=== PATIENT | male | born 1955 | race Caucasian/White ===

== ENCOUNTER 2016-09-01 01:42 | Inpatient (IN) | payer MEDICARE ==
--- NOTE | 2016-09-01 02:39 | EDPRACDOC ---
- History of Present Illness HPI: NOTE SEEN AND EXAMINED; I ASKED FOR PT TO BE UNDRESSED TO PROPERLY EVALUATE. SIG SWELLING AND DRAINING FROM BL LOWER EXTREMITIES; ALSO SIG REDNESS AND ERYTHEMA TO PERINEUM. WORSE OVER LAST WEEK. 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 Pt has appt with pcp Dr Childs today at 9am for usual Q 3 month check up for same sx, and has no new specific complaint today, and when asked why he came to ED this morning instead of waiting for pcp appt, he just states he is afraid of falling again, because he cant get himself back up. Denies cp, sob, cough, sore throat, fever, CROFT, dizzyness, lightheadedness, change in vision, changes in urine or BM. Med hx = DM, HDL. Surgical hx = none. Pain Quality: Denies: Aching, N, Burning, Colicky, Cramping, Sharp, Stabbing, Knife-like, O <Daryn Sorenson - Last Filed: 09/01/16 04:34> - General Information Chief Complaint: Fall Stated Complaint: EDEMA Time Seen by Provider: 09/01/16 02:28 Home Medications: Home Medications Benztropine Mesylate [Cogentin] 2 mg PO TID 12/25/13 Citalopram (anti-depressant) [Celexa] 20 mg PO DAILY 12/25/13 Fluphenazine [Prolixin] 5 mg PO HS 12/25/13 Gabapentin [Neurontin] 800 mg PO TID 12/25/13 Insulin Detemir [Levemir] 20 units SQ DAILY 12/25/13 Lovastatin [Mevacor] 80 mg PO HS 12/25/13 Meloxicam [Mobic] 15 mg PO DAILY 12/25/13 MetFORMIN (Immediate Release) [Glucophage Immediate Release] 1,000 mg PO 0700, 1700 12/25/13 Quinapril/Hydrochlorothiazide [Accuretic 20-12.5 mg Tablet] 1 tab PO DAILY 12/25 Testosterone Cypionate [Depo-Testosterone] 200 mg IM QMONTH 12/25/13 Trihexyphenidyl [Artane] 2 mg PO BID 12/25/13 Aspirin [Aspirin EC] 81 mg PO DAILY 01/19/14 Cyanocobalamin (Vitamin B-12) [Vitamin B-12] 1,000 mcg PO DAILY 01/19/14 Oxycodone Immediate Release [Oxycodone Immediate Release Tablet] 5 mg PO Q4H PRN #10 tab 01/19/14 Allergies/Adverse Reactions: Allergies Allergy/AdvReac Type Severity Reaction Status Date / Time No Known Allergies Allergy Verified 09/01/16 02:03 ED Past Medical History - History Reviewed Yes Nurses notes reviewed and agree except as marked - Patient Medical History Cardiac History: Reports: Hypertension, Hypercholesterolemia Psychological History: Reports: Depression, Schizophrenia Systemic History: Reports: Diabetes - Social Medical History Smoking Status: Never smoker <Daryn Sorenson - Last Filed: 09/01/16 04:34> EDM Review of Systems - Review of Systems ROS Negative Except as Marked: Yes All systems reviewed and were negative except as marked Cardiovascular: Edema (bilateral leg swelling) Neurological: Numbness, Weakness (left leg), Tingling (right foot) Endocrine: Diabetes Psychiatric: Depression <Daryn Sorenson - Last Filed: 09/01/16 04:34> - Physical Exam Last recorded Vital Signs: Last Vital Signs Temp 97.8 F 09/01/16 01:45 Pulse 76 09/01/16 01:45 Resp 09/01/16 01:45 BP 145/66 09/01/16 01:45 Pulse Ox 90 L 09/01/16 01:45 Oxygen Pulse Oxygen Saturation 90 O2 Device Room Air Oxygen Flow Rate Fraction of Inspired Oxygen ( FIO2) <Clarence Vinson - Last Filed: 09/01/16 04:13> - Physical Exam Constitutional: No apparent distress, Alert Oriented to: Time, Person, Place Last recorded Vital Signs: Last Vital Signs Temp 97.8 F 09/01/16 01:45 Pulse 76 09/01/16 01:45 Resp 18 09/01/16 01:45 BP 145/66 09/01/16 01:45 Pulse Ox 90 L 09/01/16 01:45 Oxygen Pulse Oxygen Saturation 90 O2 Device Room Air Oxygen Flow Rate Fraction of Inspired Oxygen ( FIO2) - HEENT Head: Normal Eye Exam: negative: Conjunctival Injection, Scleral Icterus TMJ: Normal Nose: No Symptoms Reported Neck: Normal - Respiratory/Cardiovascular Respiratory: Normal - CTA Cardiovascular: Normal - GI Tenderness: Non tender - Comments: Cellulitis of groin, lower abdomen and testicles, multiple areas of dried peeling skin. - Musculoskeletal Back: Normal Extremities: Edema, Pedal Edema - Integumentary Skin: Other (red edematous bilat lower legs.) Integumentary Comment: Bilat lower extremities have cellulitis below knee, are bilaterally red and swollen with serous drainage. Pt states they have been that way for > 10 yrs. Also, there are areas of white tissue on right medial foot, and left medial foot and left heel. - Neurologic Mood Description: Normal Thought: Coherent Perception: Normal <Daryn Sorenson - Last Filed: 09/01/16 04:34> - Results 09/01/16 02:43 09/01/16 02:43 WBC 9.9 xk/uL (3.8-10.8) 09/01/16 02:43 RBC 4.19 xM/uL (4.70-6.10) L 09/01/16 02:43 Hgb 12.1 g/dL (14.0-18.0) L 09/01/16 02:43 Hct 36.6 % (42-52) L 09/01/16 02:43 MCV 87 fL (80-94) 09/01/16 02:43 MCH 28.7 pg (27-32) 09/01/16 02:43 MCHC 32.9 g/dl (33-36) L 09/01/16 02:43 RDW 14.1 % (11.5-14.5) 09/01/16 02:43 Plt Count 316 xk/uL (130-400) 09/01/16 02:43 MPV 6.5 fL (7.4-10.4) L 09/01/16 02:43 Neut % (Auto) 78.1 % (45-76) H 09/01/16 02:43 Lymph % (Auto) 8.8 % (17-44) L 09/01/16 02:43 [place] % (Auto) 8.5 % (3-10) 09/01/16 02:43 Eos % (Auto) 3.6 % (0-5) 09/01/16 02:43 Baso % (Auto) 1.0 % (0-2) 09/01/16 02:43 Absolute Neuts (auto) 7.72 xk/uL (1.7-8.2) 09/01/16 02:43 Absolute Lymphs (auto) 0.79 xk/uL (0.65-4.75) 09/01/16 02:43 Lab Results 09/01/16 02:43 WBC 9.9 RBC 4.19 L Hgb 12.1 L Hct 36.6 L MCV 87 MCH 28.7 MCHC 32.9 L RDW 14.1 Plt Count 316 MPV 6.5 L Neut % (Auto) 78.1 H Lymph % (Auto) 8.8 L [place] % (Auto) 8.5 Eos % (Auto) 3.6 Baso % (Auto) 1.0 Absolute Neuts (auto) 7.72 Absolute Lymphs (auto) 0.79 <Clarence Vinson - Last Filed: 09/01/16 04:13> - Results 09/01/16 02:43 09/01/16 02:43 <Daryn Sorenson - Last Filed: 09/01/16 04:34> ED Critical Care Note - Critical Care Note Total Time (mins): 37 <Clarence Vinson - Last Filed: 09/01/16 04:13> - Departure Yes I personally saw and evaluated the patient. 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 [Primary Care Provider] - One Week Prescriptions: No Action Meloxicam [Mobic] 15 mg PO DAILY Insulin Detemir [Levemir] 20 units SQ DAILY Benztropine Mesylate [Cogentin] 2 mg PO TID Trihexyphenidyl [Artane] 2 mg PO BID Lovastatin [Mevacor] 80 mg PO HS Gabapentin [Neurontin] 800 mg PO TID Quinapril/Hydrochlorothiazide [Accuretic 20-12.5 mg Tablet] 1 tab PO DAILY MetFORMIN (Immediate Release) [Glucophage Immediate Release] 1,000 mg PO 0700 ,1700 Fluphenazine [Prolixin] 5 mg PO HS Citalopram (anti-depressant) [Celexa] 20 mg PO DAILY Testosterone Cypionate [Depo-Testosterone] 200 mg IM QMONTH Aspirin [Aspirin EC] 81 mg PO DAILY Cyanocobalamin (Vitamin B-12) [Vitamin B-12] 1,000 mcg PO DAILY Oxycodone Immediate Release [Oxycodone Immediate Release Tablet] 5 mg PO Q4H PRN #10 tab PRN Reason: Pain
[2016-09-01] MEDS ORDERED: Vancomycin HCl 0 MG in D5W 500 ML IV ONE (02:46)
[2016-09-01 02:51] LABS: AUTOMATED EOSINOPHIL 3.6 % (0-5); AUTOMATED LYMPH 8.8 % (17-44); AUTOMATED MONOCYTE 8.5 % (3-10); AUTOMATED NEUTROPHIL 78.1 % (45-76); MPV 6.5 fL (7.4-10.4)
[2016-09-01] MEDS ORDERED: Pharmacy Review for Metformin - IV Contrast Given SCH (03:00)
[2016-09-01 03:06] LABS: BLOOD UREA NITROGEN 13 MG/DL (9-20); CALC CORRECTED 9.3 MG/DL (8.4-10.2); CALCIUM 8.9 MG/DL (8.4-10.2); CALCULATED OSMOLALITY 243 MOs/Kg (270-290); CHLORIDE 82 mEq/L (98-107); GLUCOSE 98 mg/dL (70-99); SODIUM LEVEL 126 mEq/L (137-146); TOTAL PROTEIN 6.8 G/DL (6.3-8.2)
--- NOTE | 2016-09-01 03:42 | DIRPT ---
CLINICAL DATA: Chronic episodes of falling, numbness and left leg weakness. Bilateral leg swelling. Initial encounter. EXAM: LEFT FOOT - COMPLETE 3+ VIEW COMPARISON: None. FINDINGS: There is no evidence of fracture or dislocation. No osseous erosions are identified. The joint spaces are preserved. There is no evidence of talar subluxation; the subtalar joint is unremarkable in appearance. A bipartite medial sesamoid of the first toe is noted. Plantar and posterior calcaneal spurs are seen. Diffuse soft tissue swelling is noted about the ankle, hindfoot and midfoot, with diffuse vascular calcifications seen. IMPRESSION: 1. No evidence of fracture or dislocation. 2. Bipartite medial sesamoid of the first toe. 3. Diffuse soft tissue swelling about the ankle, hindfoot and midfoot, with diffuse vascular calcifications. Electronically Signed By: Nick Valverde M.D. On: 09/01/2016 03:39
--- NOTE | 2016-09-01 03:43 | DIRPT ---
CLINICAL DATA: Chronic episodes of falling, numbness and right foot tingling. Bilateral leg swelling and drainage. Initial encounter. EXAM: RIGHT FOOT COMPLETE - 3+ VIEW COMPARISON: None. FINDINGS: There is no evidence of fracture or dislocation. No osseous erosions are seen. The joint spaces are preserved. There is no evidence of talar subluxation; the subtalar joint is unremarkable in appearance. Plantar and posterior calcaneal spurs are seen. Diffuse soft tissue swelling is noted about the ankle and forefoot, with diffuse vascular calcifications. IMPRESSION: 1. No evidence of fracture or dislocation. 2. Diffuse soft tissue swelling about the ankle and forefoot, with diffuse vascular calcifications. Electronically Signed By: Nick Valverde M.D. On: 09/01/2016 03:41
[2016-09-01] MEDS ORDERED: MAGNESIUM HYDROXIDE 30 ML BOTTLE PO PRN (05:17)
[2016-09-01] MEDS ORDERED: DEXTROSE 25 GM/50 ML PFS IV PRN (05:17)
[2016-09-01] MEDS ORDERED: ACETAMINOPHEN 650 MG SUPP PR PRN (05:17)
[2016-09-01] MEDS ORDERED: Aluminum;Magnesium;Simethicone 30 ML UDC PO PRN (05:17)
[2016-09-01] MEDS ORDERED: ACETAMINOPHEN 325 MG/TAB TABLET PO PRN (05:17)
[2016-09-01] MEDS ORDERED: GLUCAGON 1 MG VIAL SQ PRN (05:17)
[2016-09-01] MEDS ORDERED: GLUCOSE (ORAL GEL) 15 GM TUBE PO PRN (05:17)
[2016-09-01] MEDS ORDERED: Docusate Sodium 100 MG CAP PO PRN (05:17)
[2016-09-01] MEDS ORDERED: PROMETHAZINE 25 MG/ML VIAL IV PRN (05:17)
[2016-09-01] MEDS ORDERED: ONDANSETRON HCL 4 MG/2 ML VIAL IV PRN (05:17)
--- NOTE | 2016-09-01 05:21 | DIRPT ---
CLINICAL DATA: Status post fall. Generalized weakness. Bilateral lower extremity weeping and edema. Assess perineum. Initial encounter. EXAM: CT PELVIS WITHOUT CONTRAST TECHNIQUE: Multidetector CT imaging of the pelvis was performed following the standard protocol without intravenous contrast. COMPARISON: Right hip radiographs performed 01/19/2014 FINDINGS: Soft tissue inflammation and skin thickening are noted within the soft tissues anterior to the patient's penile shaft and scrotum. The perineum itself appears grossly unremarkable. There is mild skin thickening along the proximal thighs bilaterally, both medially and laterally, slightly more prominent on the left. Soft tissue inflammation and skin thickening are also noted along the patient's pannus. No focal abscess is seen. There is no evidence for Clay's gangrene. Scattered vascular calcifications are seen. Visualized small and large bowel loops are grossly unremarkable, aside from a calcified epiploic appendage at the level of the sigmoid colon. The bladder is moderately distended and grossly unremarkable. The prostate remains normal in size. The visualized vasculature is grossly unremarkable in appearance. No significant hydrocele is seen. Degenerative change is noted at the lower lumbar spine. Vacuum phenomenon is seen at L4-L5, with associated endplate sclerosis. IMPRESSION: 1. Soft tissue inflammation and skin thickening within the soft tissues anterior to the penile shaft and scrotum. Mild skin thickening along the proximal thighs bilaterally, both medially and laterally, slightly more prominent on the left. Soft tissue inflammation and skin thickening along the patient's pannus. The perineum itself appears grossly unremarkable. No evidence of abscess. 2. Scattered vascular calcifications seen. Electronically Signed By: Nick Valverde M.D. On: 09/01/2016 05:18
--- NOTE | 2016-09-01 05:30 | HISTPHYS ---
- Chief Complaint Worsening rash involving both lower extremities and perineum. - History of Present Illness Note: Patient is a new extremely poor historian and it is difficult to get an accurate history because of this. Essentially, patient has a history of longstanding diabetes mellitus with some question of chronic recurring lower extremity cellulitis although this point is not quite clear. Patient does state that over the throat past 3 weeks he has had significant worsening in bilateral lower extremity erythema edema and pain involving both legs from the foot to just distal of the knee. There is some mild weeping of the associated skin but no significant open wounds or drainage. There is extremely poor hygiene and significant malodor associated with possible bacterial etiology verses. The thighs are mostly spared from this condition however the erythema and edema six-pack up again in the perineum extends to involve the entire pannus (which is significant in this patient with a BMI of 52.5 kilograms/meter sq). Patient states that prior to admission the left leg was aching like a "toothache" but then resolved. He then states that after being moved by EMS his right leg began hurting like a "toothache." Patient denies any fevers rigors or chills. Is otherwise without new complaint of. - Medical History Cardiac History: Reports: Hypertension, Hypercholesterolemia Respiratory History: Reports: No Significant History, Cough. Denies: Aspiration Pneumonia GI/ History: Reports: No Significant History Systemic History: Reports: Diabetes Neurological History: Reports: No Significant History Psychological History: Reports: Depression, Schizophrenia - Surgical History Reports: No Significant History - Medictions/Allergies Allergies No Known Allergies Allergy (Verified 09/01/16 02:03) Current Medication List: Reviewed Home Medications Benztropine Mesylate [Cogentin] 2 mg PO TID 12/25/13 Citalopram (anti-depressant) [Celexa] 20 mg PO DAILY 12/25/13 Fluphenazine [Prolixin] 5 mg PO HS 12/25/13 Gabapentin [Neurontin] 800 mg PO TID 12/25/13 Insulin Detemir [Levemir] 20 units SQ DAILY 12/25/13 Lovastatin [Mevacor] 80 mg PO HS 12/25/13 Meloxicam [Mobic] 15 mg PO DAILY 12/25/13 MetFORMIN (Immediate Release) [Glucophage Immediate Release] 1,000 mg PO 0700, 1700 12/25/13 Quinapril/Hydrochlorothiazide [Accuretic 20-12.5 mg Tablet] 1 tab PO DAILY 12/25 Testosterone Cypionate [Depo-Testosterone] 200 mg IM QMONTH 12/25/13 Trihexyphenidyl [Artane] 2 mg PO BID 12/25/13 Aspirin [Aspirin EC] 81 mg PO DAILY 01/19/14 Cyanocobalamin (Vitamin B-12) [Vitamin B-12] 1,000 mcg PO DAILY 01/19/14 Oxycodone Immediate Release [Oxycodone Immediate Release Tablet] 5 mg PO Q4H PRN #10 tab 01/19/14 - Family History Reports: Other (Patient unable/unwilling to provide.) - Social History Travel Outside of [place] in the Last 3 Months?: No Lives: with Significant Other Smoking Status: Never smoker Social History: Denies: Alcohol Use - Review of Systems Yes All systems reviewed and were negative except as marked Constitutional: negative: Chills, Fever, Loss of Appetite Eyes: negative: Blurred Vision, Double Vision, Pain Ears: negative: Pain Nose: negative: Bleeding, Swelling Throat/Neck: negative: Swelling Respiratory: Shortness of Breath. negative: Cough, Hemoptysis, Wheezing, Asthma Cardiovascular: negative: Chest Pain, Cyanosis, Orthopnea, Palpitations, PND, Skin Mottling Gastrointestinal: No Symptoms Reported (No abdominal pain, nausea, vomiting, diarrhea, constipation, or bloody stool.) Genitourinary: negative: Discharge, Hematuria Integumentary: negative: Bruising, Itching, Rash Allergic/Immunologic: No Symptoms Reported (no rashes or lesions) Hematologic: No Symptoms Reported (No chronic anemia, bleeding, or easy bruising.) Endocrine: No Symptoms Reported (No thyroid issues, polyuria, or polydipsia.) Psychiatric: negative: Hallucinations, Suicidal - Physical Exam Vital Signs: Initial Vitals Temperature 97.8 F 09/01/16 01:45 Pulse Rate 76 09/01/16 01:45 Respiratory Rate 18 09/01/16 01:45 Blood Pressure 145/66 09/01/16 01:45 Pulse Oxygen Saturation 90 L 09/01/16 01:45 Constitutional: Other (Generally disheveled and ill-appearing. Extremely poor hygiene.) Oriented to: Time, Person, Place - HEENT Head: Normal. negative: Deformity, Laceration Eye: negative: Conjunctival Injection, Scleral Icterus Oropharynx: Membranes Dry. negative: Drooling, Exudate, Red, Tonsillar Hypertrophy TMJ: Normal Respiratory: Diminished. negative: Rales, Retractions, Rhonchi, Stridor, Tachypnea - GI Auscultation: Normal Palpation: Normal. negative: Mass Tenderness: Non tender. negative: Guarding, Rebound, Rigidity Ayoub's Sign: Negative - Musculoskeletal Back: Normal, CVA Tenderness Extremities: negative: Clubbing, Cyanosis, Edema, Pedal Edema Spine: non-tender, limited range of motion - Integumentary Skin: Warm, Dry. negative: Rash, Mottling, Jaundice Lymphatics: Normal - Neurologic Memory Impaired: Normal Motor Function: Normal Cranial Nerve: Normal Cerebellar: Normal Mood Description: Normal Thought: Coherent Perception: Normal - Focused CV Perfusion Exam Vital Signs: Last Vital Signs Temp 97.8 F 09/01/16 01:45 Pulse 77 09/01/16 03:00 Resp 20 09/01/16 03:00 BP 141/66 09/01/16 03:00 Pulse Ox 91 09/01/16 03:00 - Lab Results 09/01/16 02:43 09/01/16 02:43 Laboratory Last Values WBC 9.9 xk/uL (3.8-10.8) 09/01/16 02:43 RBC 4.19 xM/uL (4.70-6.10) L 09/01/16 02:43 Hgb 12.1 g/dL (14.0-18.0) L 09/01/16 02:43 Hct 36.6 % (42-52) L 09/01/16 02:43 MCV 87 fL (80-94) 09/01/16 02:43 MCH 28.7 pg (27-32) 09/01/16 02:43 MCHC 32.9 g/dl (33-36) L 09/01/16 02:43 RDW 14.1 % (11.5-14.5) 09/01/16 02:43 Plt Count 316 xk/uL (130-400) 09/01/16 02:43 MPV 6.5 fL (7.4-10.4) L 09/01/16 02:43 Neut % (Auto) 78.1 % (45-76) H 09/01/16 02:43 Lymph % (Auto) 8.8 % (17-44) L 09/01/16 02:43 [place] % (Auto) 8.5 % (3-10) 09/01/16 02:43 Eos % (Auto) 3.6 % (0-5) 09/01/16 02:43 Baso % (Auto) 1.0 % (0-2) 09/01/16 02:43 Absolute Neuts (auto) 7.72 xk/uL (1.7-8.2) 09/01/16 02:43 Absolute Lymphs (auto) 0.79 xk/uL (0.65-4.75) 09/01/16 02:43 Sodium 126 mEq/L (137-146) L 09/01/16 02:43 Potassium 4.5 mEq/L (3.5-5.1) 09/01/16 02:43 Chloride 82 mEq/L (98-107) L 09/01/16 02:43 Carbon Dioxide 36 mMOL/L (22-33) H 09/01/16 02:43 Anion Gap 13 mEq/L (8-16) 09/01/16 02:43 BUN 13 MG/DL (9-20) 09/01/16 02:43 Creatinine 0.70 MG/DL (0.66-1.25) 09/01/16 02:43 Estimated GFR (MDRD) > 60 mL/min (>=60) 09/01/16 02:43 Glucose 98 mg/dL (70-99) 09/01/16 02:43 Calculated Osmolality 243 MOs/Kg (270-290) L 09/01/16 02:43 Calcium 8.9 MG/DL (8.4-10.2) 09/01/16 02:43 Corrected Calcium 9.3 MG/DL (8.4-10.2) 09/01/16 02:43 Total Bilirubin 0.5 MG/DL (0.2-1.3) 09/01/16 02:43 AST 46 IU/L (17-59) 09/01/16 02:43 ALT 36 IU/L (21-72) 09/01/16 02:43 Alkaline Phosphatase 98 IU/L (50-160) 09/01/16 02:43 Total Protein 6.8 G/DL (6.3-8.2) 09/01/16 02:43 Albumin 3.6 G/DL (3.5-5.0) 09/01/16 02:43 - Diagnostic Findings EXAM: LEFT FOOT - COMPLETE 3+ VIEW COMPARISON: None. FINDINGS: There is no evidence of fracture or dislocation. No osseous erosions are identified. The joint spaces are preserved. There is no evidence of talar subluxation; the subtalar joint is unremarkable in appearance. A bipartite medial sesamoid of the first toe is noted. Plantar and posterior calcaneal spurs are seen. Diffuse soft tissue swelling is noted about the ankle, hindfoot and midfoot, with diffuse vascular calcifications seen. IMPRESSION: 1. No evidence of fracture or dislocation. 2. Bipartite medial sesamoid of the first toe. 3. Diffuse soft tissue swelling about the ankle, hindfoot and midfoot, with diffuse vascular calcifications. EXAM: RIGHT FOOT COMPLETE - 3+ VIEW COMPARISON: None. FINDINGS: There is no evidence of fracture or dislocation. No osseous erosions are seen. The joint spaces are preserved. There is no evidence of talar subluxation; the subtalar joint is unremarkable in appearance. Plantar and posterior calcaneal spurs are seen. Diffuse soft tissue swelling is noted about the ankle and forefoot, with diffuse vascular calcifications. IMPRESSION: 1. No evidence of fracture or dislocation. 2. Diffuse soft tissue swelling about the ankle and forefoot, with diffuse vascular calcifications. Twelve lead EKG: Pending - Assessment (1) Cellulitis of both lower extremities L03.115 - CELLULITIS OF RIGHT LOWER LIMB; L03.116 - CELLULITIS OF LEFT LOWER LIMB Acute Present on Admission: Yes Patient has severe bilateral lower extremity cellulitis that extends from each foot to just proximal to the respective knee in each case. Skin is weeping somewhat but no significant open wounds noted. No fevers rigors or chills at this point. Of note: Plantar aspects of both feet have areas that appears to be macerated full which may also represent early necrosis. Will likely require surgical consultation. Plan: Admit to [facility] 3. Start IV antibiotic therapy with vancomycin. Dressing changes (if required) per Physical therapy/Wound Care. Surgical consult p.r.n.. (2) Cellulitis of perineum L03.315 - CELLULITIS OF PERINEUM Acute Present on Admission: Yes As above acute versus acute on chronic cellulitis involving the perineum. CT of the pelvis has been ordered to help rule out of Clay's. Given the nature of this area also strongly suspect superinfection with candidiasis. Plan: IV vancomycin as above. Will also add nystatin powder and/or cream to area 2 controlled used superinfection. (3) Diabetes mellitus type 2 in obese E11.9 - TYPE 2 DIABETES MELLITUS WITHOUT COMPLICATIONS; E66.9 - OBESITY, UNSPECIFIED Chronic Present on Admission: Yes Plan: Medium consistent carbohydrate diet with regular insulin sliding scale coverage q. a.c. and HS (q.6hrs if NPO). Continue patient's home diabetes regimen. Will obtain hemoglobin A1c and random microalbumin levels if not already done. (4) Hypertension I10 - ESSENTIAL (PRIMARY) HYPERTENSION Chronic Present on Admission: Yes Qualifiers: Hypertension type: essential hypertension Qualified Code(s): I10 - Essential (primary) hypertension Currently stable. Plan: Monitor vital signs per protocol. Continue current antihypertensive medical regimen. (5) Schizophrenia F20.9 - SCHIZOPHRENIA, UNSPECIFIED Acute Present on Admission: Yes Case Care Discussed with: Patient Total Time: 70 minutes. Critical Care: No Code: 18771
[2016-09-01] MEDS ORDERED: NYSTATIN POWDER 15 GM BOTTLE TOP SCH (06:00)
[2016-09-01] MEDS ORDERED: Vancomycin HCl 0 MG in D5W 500 ML IV SCH (06:00)
[2016-09-01] MEDS: NYSTATIN POWDER 15 GM BOTTLE TOP SCH ×6 (06:19→21:08)
[2016-09-01] MEDS: NS 1,000 ML IV SCH ×2 (06:28→15:30)
[2016-09-01] MEDS: REGULAR INSULIN 100 UNITS/ML - 3 ML VIAL SQ SCH ×4 (06:47→21:07)
[2016-09-01 08:24] LABS: LEUKOCYTES/URINE NEG (NEGATIVE); NITRITE/URINE NEG (NEGATIVE); RBC/URINE 0-2 (0-2); URINE OCCULT BLOOD NEG (NEG/TRACE); WBC/URINE 0-2 (0-2)
[2016-09-01] MEDS ORDERED: Vaccine Screening Complete SCH (11:00)
[2016-09-01] MEDS ORDERED: TRAZODONE 50 MG TAB PO PRN (12:45)
[2016-09-01] MEDS ORDERED: FLUPHENAZINE DECANOATE IM SCH (12:45)
[2016-09-01] MEDS ORDERED: INSULIN DETEMIR 100 UNITS/ML PEN SQ SCH (13:00)
[2016-09-01] MEDS: GABAPENTIN 800 MG TAB PO SCH ×2 (16:44→21:07)
[2016-09-01] MEDS: FLUPHENAZINE 5 MG TAB PO SCH (16:45)
[2016-09-01] MEDS ORDERED: ENOXAPARIN 80 MG/0.8 ML PFS SQ SCH (18:00)
[2016-09-01] MEDS ORDERED: LOVASTATIN 80 MG PO SCH (21:00)
[2016-09-01] MEDS: PRAVASTATIN 80 MG TABLET PO SCH (21:08)
[2016-09-01] MEDS: TRIHEXYPHENIDYL 2 MG TAB PO SCH (21:08)
--- NOTE | 2016-09-02 01:06 | GENMEDPROG ---
Note CROSS COVER NOTE 09/02/16 0100 S: Nurse called overnight. Patient unable to take Lovenox for DVT prophylaxis because all the potential sites of subcutaneous injection are also sites of cellulitis. A/P: 1. DVT prophylaxis. Discussed case with pharmacist. Will start low-dose Xarelto for DVT prophylaxis while patient is in the hospital.
[2016-09-02] MEDS: NS 1,000 ML IV SCH ×2 (03:17→18:36)
[2016-09-02] MEDS: GABAPENTIN 800 MG TAB PO SCH ×3 (05:16→21:16)
[2016-09-02] MEDS: NYSTATIN POWDER 15 GM BOTTLE TOP SCH ×6 (05:16→21:17)
[2016-09-02] MEDS: REGULAR INSULIN 100 UNITS/ML - 3 ML VIAL SQ SCH ×4 (06:10→21:23)
[2016-09-02 07:15] LABS: MPV 6.3 fL (7.4-10.4)
[2016-09-02 07:42] LABS: BLOOD UREA NITROGEN 8 MG/DL (9-20); CALCIUM 8.8 MG/DL (8.4-10.2); CALCULATED OSMOLALITY 253 MOs/Kg (270-290); CHLORIDE 91 mEq/L (98-107); GLUCOSE 132 mg/dL (70-99); SODIUM LEVEL 131 mEq/L (137-146)
--- NOTE | 2016-09-02 08:02 | PCM.SURGCO ---
Consultation Date: 09/02/16 Requesting Physician: Raj Enrique [id number] Analyst: Daryn Davis Consult Reason: Poor Venous Access, Wound - History of Present Illness 60 YO male wtih bilateral lower extremity cellulitis and poor venous access. He is a very poor historian and I am not able to get an accurate history. Apparently he has had lower extremity issues for some time but has worsened over the past few weeks. Now they are very red, swollen and draining. He has a history of schizophrenia, diabetes, hypertension, morbid obesity and depression. Chief Complaint: Worsening rash involving both lower extremities and perineum. - Past Medical and Surgical History Cardiac History: Reports: Hypertension Respiratory History: Reports: No Significant History GI/ History: Reports: No Significant History Systemic History: Reports: Diabetes Musculoskeletal History: Reports: No Significant History Psychological History: Reports: Depression, Schizophrenia Neurological History: Reports: No Significant History Past Surgical History: Reports: No Significant History Allergies No Known Allergies Allergy (Verified 09/01/16 02:03) Home Medications Citalopram (anti-depressant) [Celexa] 20 mg PO DAILY 12/25/13 Fluphenazine [Prolixin] 5 mg PO .AFTERNOON 12/25/13 Gabapentin [Neurontin] 800 mg PO TID 12/25/13 Lovastatin [Mevacor] 80 mg PO HS 12/25/13 MetFORMIN (Immediate Release) [Glucophage Immediate Release] 1,000 mg PO 0700, 1700 12/25/13 Quinapril/Hydrochlorothiazide [Accuretic 20-12.5 mg Tablet] 1 tab PO DAILY 12/25 Trihexyphenidyl [Artane] 2 mg PO BID 12/25/13 Aspirin [Aspirin EC] 81 mg PO DAILY 01/19/14 Celecoxib [Celebrex] 200 mg PO DAILY 09/01/16 Fluphenazine Decanoate 30 mg IM .[id number] 09/01/16 Furosemide [Lasix] 20 mg PO QAM 09/01/16 Insulin Detemir [Levemir Flextouch] 20 unit SQ DAILY 09/01/16 Tamsulosin HCl [Flomax] 0.4 mg PO DAILY 09/01/16 Trazodone HCl [Desyrel] 50 mg PO QHS PRN 09/01/16 - Social History Travel Outside of [place] in the Last 3 Months?: No Smoking Status: Never smoker - Family History Reports: Other (Patient unable/unwilling to provide.) - Review of Systems Constitutional: negative: Chills, Fever Eyes: negative: Blurred Vision, Double Vision Nose: negative: Bleeding, Congestion Throat/Neck: negative: Swelling, Masses, Hoarseness Respiratory: negative: Hemoptysis, Shortness of Breath Cardiovascular: Edema. negative: Chest Pain, Orthopnea, Palpitations Gastrointestinal: negative: Nausea, Vomiting, Abdominal Pain Neurological: negative: Headache, Seizure Psychiatric: negative: Anxiety, Depression - Physical Exam Vital Signs: Initial Vitals Temperature 97.8 F 09/01/16 01:45 Pulse Rate 76 09/01/16 01:45 Respiratory Rate 18 09/01/16 01:45 Blood Pressure 145/66 09/01/16 01:45 Pulse Oxygen Saturation 90 L 09/01/16 01:45 Constitutional: No apparent distress Oriented to: Time, Person, Place - HEENT Head: Normal. negative: Deformity, Swelling Eye: negative: Pale Conjunctiva, Scleral Icterus Respiratory: Normal - CTA. negative: Rales, Rhonchi Cardiovascular: Normal. negative: Bradycardia, Tachycardia, Irregular - GI Auscultation: Normal Palpation: Normal. negative: Fluid Wave, Mass Tenderness: Non tender. negative: Guarding, Rebound Ayoub's Sign: Negative - Musculoskeletal Back: negative: Ecchymosis, CVA Tenderness Extremities: Edema, Other (lymphedema with drainage) - Integumentary Skin: Warm, Other (erythema both lower extremities, lymphedema.) - Lab Results 09/02/16 06:24 09/02/16 06:24 - Assessment/Plan (1) Cellulitis of both lower extremities L03.115 - CELLULITIS OF RIGHT LOWER LIMB; L03.116 - CELLULITIS OF LEFT LOWER LIMB Acute Present on Admission: Yes (2) Schizophrenia F20.9 - SCHIZOPHRENIA, UNSPECIFIED Chronic Present on Admission: Yes (3) Diabetes mellitus type 2 in obese E11.9 - TYPE 2 DIABETES MELLITUS WITHOUT COMPLICATIONS; E66.9 - OBESITY, UNSPECIFIED Chronic Present on Admission: Yes (4) Hypertension I10 - ESSENTIAL (PRIMARY) HYPERTENSION Chronic Present on Admission: Yes essential hypertension I10 - Essential (primary) hypertension Plan: Aagree with antibiotics for cellulitis. Will start with hibiclens showers. once drainage decreases, he will benefit from UNNA boots. Will arrange for PICC today. Start Diflucan for rash.
[2016-09-02] MEDS ORDERED: HYDROCHLOROTHIAZIDE PO SCH (09:00)
[2016-09-02] MEDS ORDERED: QUINAPRIL PO SCH (09:00)
[2016-09-02] MEDS ORDERED: [UNRECOGNIZED DRUG - OTHER] PO SCH (09:00)
[2016-09-02] MEDS: RIVAROXABAN 10 MG TAB PO SCH (09:10)
[2016-09-02] MEDS: QUINAPRIL HCL 20 MG TAB PO SCH (09:20)
[2016-09-02] MEDS: TRIHEXYPHENIDYL 2 MG TAB PO SCH ×2 (09:20→21:20)
[2016-09-02] MEDS: Celecoxib 200 MG CAP PO SCH (09:21)
[2016-09-02] MEDS: HYDROCHLOROTHIAZIDE 12.5 MG CAP PO SCH (09:21)
[2016-09-02] MEDS: FUROSEMIDE 20 MG TAB PO SCH (09:22)
[2016-09-02] MEDS: TAMSULOSIN HCL 0.4 MG CAP PO SCH (09:22)
[2016-09-02] MEDS: FLUCONAZOLE 100 MG TAB PO SCH (09:32)
[2016-09-02] MEDS: INSULIN DETEMIR 100 UNITS/ML PEN SQ SCH (10:54)
[2016-09-02] MEDS: FLUPHENAZINE DECANOATE 25 MG/ML IM SCH ×2 (12:43→12:55)
--- NOTE | 2016-09-02 13:08 | GENMEDPROG ---
Chief Complaint: More anxious and agitated today. Slight improvement in cellulitis. Hearing voices, refusing PICC line. Notes Reviewed: Yes: Events from last night noted and discussed with Clinical Staff Current Medication List: Reviewed Currently: Denies: Cough, Wheezing, DUFF, SOB, Nausea and Vomiting, Abdominal Pain - Physical Examination Vital Signs and I&O: Last Vital Signs Temp 97.9 F 09/02/16 05:47 Pulse 83 09/02/16 09:24 Resp 16 09/02/16 05:47 BP 113/68 09/02/16 09:24 Pulse Ox 93 09/02/16 09:07 Oxygen Pulse Oxygen Saturation 93 O2 Device Nasal Cannula Oxygen Flow Rate 2 Fraction of Inspired Oxygen ( FIO2) Intake & Output 08/30/16 08/31/16 09/01/16 09/02/16 23:59 23:59 23:59 23:59 Intake Total 2357 1870 Output Total 3150 1750 Balance -793 120 Patient's weight 159.835 kg 160.685 kg General: Alert, Oriented x3, Obese. negative: Cooperative, Well appearing ( Chronically ill-appearing) HEENT: Normal, PERRLA, EOMI Neck: Non-tender, Full range of motion, Normal Trachea alignment, Normal inspection. negative: JVD Lymphatics: Normal. negative: Adenopathy Respiratory: Normal - CTA. negative: Rales, Rhonchi Cardiovascular: Regular rate and rhythm, No Gallops,Rubs/Murmurs GI: Normal bowel sounds, Soft, Non tender, No hepatospenomegaly Extremities/Musculoskeletal: Edema Skin: Erythema (From feet to mid abdomen), Excoriation Neurological: Normal speech, Strength at 5/5 X4 ext Psych/Mental Status: Agitated, Anxious, Restless Lab/DI/Studies Reviewed: Laboratory Results - last 24 hr 09/01/16 09/01/16 09/02/16 15:56 20:15 05:13 WBC RBC Hgb Hct MCV MCH MCHC RDW Plt Count MPV Sodium Potassium Chloride Carbon Dioxide Anion Gap BUN Creatinine Estimated GFR (MDRD) Glucose POC Capillary Glucose 111 H 199 H 134 H Calculated Osmolality Calcium 09/02/16 09/02/16 09/02/16 06:24 06:24 10:59 WBC 8.3 RBC 4.26 L Hgb 12.3 L Hct 38.2 L MCV 90 MCH 28.9 MCHC 32.2 L RDW 14.4 Plt Count 317 MPV 6.3 L Sodium 131 L Potassium 5.0 Chloride 91 L Carbon Dioxide 32 Anion Gap 13 BUN 8 L Creatinine 0.60 L Estimated GFR (MDRD) > 60 Glucose 132 H POC Capillary Glucose 130 H Calculated Osmolality 253 L Calcium 8.8 09/02/16 12:09 WBC RBC Hgb Hct MCV MCH MCHC RDW Plt Count MPV Sodium Potassium Chloride Carbon Dioxide Anion Gap BUN Creatinine Estimated GFR (MDRD) Glucose POC Capillary Glucose 117 H Calculated Osmolality Calcium - Assessment (1) Cellulitis of both lower extremities Acute L03.115 - CELLULITIS OF RIGHT LOWER LIMB; L03.116 - CELLULITIS OF LEFT LOWER LIMB Comment/Plan: Some better. Still moderate to severe erythema and cellulitis. Agitation and schizophrenia are creating issues today. IV access is poor but he has been refusing to have PICC line placed. Continue current care and monitor. (2) Cellulitis of perineum Acute L03.315 - CELLULITIS OF PERINEUM Comment/Plan: Does not appear to have Clay's gangrene. Continue antibiotics and supportive care. Continue treatment for stasis dermatitis. Overall improving some. (3) Diabetes mellitus type 2 in obese Chronic E11.9 - TYPE 2 DIABETES MELLITUS WITHOUT COMPLICATIONS; E66.9 - OBESITY, UNSPECIFIED Comment/Plan: Desperately needs weight loss. Accu-Cheks and sliding scale insulin. Continue current medications. (4) Hypertension Chronic I10 - ESSENTIAL (PRIMARY) HYPERTENSION Qualifiers: Hypertension type: essential hypertension Qualified Code(s): I10 - Essential (primary) hypertension Comment/Plan: Continue medications and monitor (5) Schizophrenia Chronic F20.9 - SCHIZOPHRENIA, UNSPECIFIED Qualifiers: Schizophrenia type: unspecified Qualified Code(s): F20.9 - Schizophrenia, unspecified Comment/Plan: Increasingly agitated and combative today. Hearing voices from the TV. Continue medications. He is due for his every other week Prolixin injection Case Care Discussed with: Patient, Nursing Staff, Resource Management
[2016-09-02] MEDS ORDERED: LIDOCAINE 1% 30 ML VIAL (PRESERVATIVE FREE) ONE (14:28)
[2016-09-02] MEDS: FLUPHENAZINE 5 MG TAB PO SCH (16:14)
--- NOTE | 2016-09-02 16:38 | DIRPT ---
INDICATION: Requires IV antibiotics for lower extremity cellulitis. EXAM: CENTRAL VENOUS CATHETER MEDICATIONS: None. ANESTHESIA/SEDATION: None. FLUOROSCOPY TIME: Fluoroscopy Time: 42 seconds. COMPLICATIONS: None immediate. PROCEDURE: Informed written consent was obtained from the patient after a thorough discussion of the procedural risks, benefits and alternatives. All questions were addressed. Maximal Sterile Barrier Technique was utilized including caps, mask, sterile gowns, sterile gloves, sterile drape, hand hygiene and skin antiseptic. A timeout was performed prior to the initiation of the procedure. The right upper arm was prepped and draped using sterile technique. Local anesthetic was applied. Under real-time ultrasound guidance, access was gained into the right basilic vein. Guidewire was passed through the needle followed by peel-away sheath. Five [place] single lumen PICC was cut to 37 cm in length and pass through peel-away sheath under fluoroscopic guidance, with distal tip placed in expected position of cavoatrial junction. Heparin flush was administered through the catheter. The peel-away sheath was removed and external portion of the catheter was secured. IMPRESSION: Under ultrasound and fluoroscopic guidance, successful placement of 5 [place] single-lumen PICC into right basilic vein. Electronically Signed By: Boogie Enrique Jr, M.D. On: 09/02/2016 16:35
[2016-09-02] MEDS: CHLORHEXIDINE (HIBICLENS) 4 OZ BOTTLE TOP SCH (21:16)
[2016-09-02] MEDS: PRAVASTATIN 80 MG TABLET PO SCH (21:17)
[2016-09-03] MEDS: NS 1,000 ML IV SCH ×3 (03:35→18:17)
[2016-09-03] MEDS: NYSTATIN POWDER 15 GM BOTTLE TOP SCH ×6 (06:07→20:53)
[2016-09-03] MEDS: GABAPENTIN 800 MG TAB PO SCH ×3 (06:08→21:43)
[2016-09-03] MEDS: MetFORMIN 1000 MG IMMED REL TAB PO SCH ×2 (06:08→15:59)
[2016-09-03] MEDS: REGULAR INSULIN 100 UNITS/ML - 3 ML VIAL SQ SCH ×4 (06:34→21:41)
[2016-09-03 07:13] LABS: MPV 6.5 fL (7.4-10.4)
[2016-09-03 08:01] LABS: BLOOD UREA NITROGEN 17 MG/DL (9-20); CALCIUM 8.5 MG/DL (8.4-10.2); CALCULATED OSMOLALITY 256 MOs/Kg (270-290); CHLORIDE 89 mEq/L (98-107); GLUCOSE 124 mg/dL (70-99); SODIUM LEVEL 131 mEq/L (137-146)
[2016-09-03] MEDS: RIVAROXABAN 10 MG TAB PO SCH (08:22)
[2016-09-03] MEDS: Celecoxib 200 MG CAP PO SCH (08:23)
[2016-09-03] MEDS: QUINAPRIL HCL 20 MG TAB PO SCH (08:23)
[2016-09-03] MEDS: TRIHEXYPHENIDYL 2 MG TAB PO SCH ×2 (08:23→20:52)
[2016-09-03] MEDS: FLUCONAZOLE 100 MG TAB PO SCH (08:24)
[2016-09-03] MEDS: TAMSULOSIN HCL 0.4 MG CAP PO SCH (08:24)
[2016-09-03] MEDS: FUROSEMIDE 20 MG TAB PO SCH (08:25)
[2016-09-03] MEDS: NICOTINE 21 MG PATCH TOP SCH (08:25)
[2016-09-03] MEDS: HYDROCHLOROTHIAZIDE 12.5 MG CAP PO SCH (08:25)
[2016-09-03] MEDS: INSULIN DETEMIR 100 UNITS/ML PEN SQ SCH (08:26)
--- NOTE | 2016-09-03 12:27 | GENMEDPROG ---
Chief Complaint: Much calmer today. Denies chest pain. Cellulitis slowly improving. Notes Reviewed: Yes: Events from last night noted and discussed with Clinical Staff Current Medication List: Reviewed Currently: Denies: Cough, Wheezing, DUFF, SOB, Nausea and Vomiting, Abdominal Pain - Physical Examination Vital Signs and I&O: Last Vital Signs Temp 98.3 F 09/03/16 10:44 Pulse 69 09/03/16 10:44 Resp 22 09/03/16 10:44 BP 111/53 L 09/03/16 10:44 Pulse Ox 96 09/03/16 10:44 Oxygen Pulse Oxygen Saturation 96 O2 Device Nasal Cannula Oxygen Flow Rate 2 Fraction of Inspired Oxygen ( FIO2) Intake & Output 08/31/16 09/01/16 09/02/16 09/03/16 23:59 23:59 23:59 23:59 Intake Total 2357 3430 1737 Output Total 3150 2050 600 Balance -793 1380 1137 Patient's weight 159.835 kg 160.685 kg 160.685 kg General: Alert, Oriented x3, Obese. negative: Cooperative, Well appearing ( Chronically ill-appearing) HEENT: Normal, PERRLA, EOMI Neck: Non-tender, Full range of motion, Normal Trachea alignment, Normal inspection. negative: JVD Lymphatics: Normal. negative: Adenopathy Respiratory: Normal - CTA. negative: Rales, Rhonchi Cardiovascular: Regular rate and rhythm, No Gallops,Rubs/Murmurs GI: Normal bowel sounds, Soft, Non tender, No hepatospenomegaly Extremities/Musculoskeletal: Edema Skin: Rash, Erythema (From feet to mid abdomen), Excoriation Neurological: Normal speech, Strength at 5/5 X4 ext Psych/Mental Status: Agitated, Anxious, Restless Lab/DI/Studies Reviewed: Laboratory Results - last 24 hr 09/01/16 09/02/16 09/02/16 08:00 15:10 17:02 WBC RBC Hgb Hct MCV MCH MCHC RDW Plt Count MPV Sodium Potassium Chloride Carbon Dioxide Anion Gap BUN Creatinine Estimated GFR (MDRD) Glucose POC Capillary Glucose 152 H Calculated Osmolality Calcium Ur Random Microalbumin 8.5 Vancomycin Trough 20.0 09/02/16 09/03/16 09/03/16 21:22 06:25 06:25 WBC 9.6 RBC 3.88 L Hgb 11.2 L Hct 35.0 L MCV 90 MCH 28.8 MCHC 31.9 L RDW 14.5 Plt Count 279 MPV 6.5 L Sodium 131 L Potassium 5.0 Chloride 89 L Carbon Dioxide 36 H Anion Gap 11 BUN 17 Creatinine 0.90 Estimated GFR (MDRD) > 60 Glucose 124 H POC Capillary Glucose 109 H Calculated Osmolality 256 L Calcium 8.5 Ur Random Microalbumin Vancomycin Trough 09/03/16 09/03/16 06:30 11:44 WBC RBC Hgb Hct MCV MCH MCHC RDW Plt Count MPV Sodium Potassium Chloride Carbon Dioxide Anion Gap BUN Creatinine Estimated GFR (MDRD) Glucose POC Capillary Glucose 123 H 123 H Calculated Osmolality Calcium Ur Random Microalbumin Vancomycin Trough - Assessment (1) Cellulitis of both lower extremities Acute L03.115 - CELLULITIS OF RIGHT LOWER LIMB; L03.116 - CELLULITIS OF LEFT LOWER LIMB Comment/Plan: Significantly better today. Large component of stasis dermatitis and probable fungal dermatitis. Excoriated areas are improving. Stressed leg elevation and compression stockings. Likely would benefit from Unna boots long-term. Desperately needs weight loss (2) Cellulitis of perineum Acute L03.315 - CELLULITIS OF PERINEUM Comment/Plan: Overall improving. Needs weight loss and better hygiene. Increase activity as able. (3) Diabetes mellitus type 2 in obese Chronic E11.9 - TYPE 2 DIABETES MELLITUS WITHOUT COMPLICATIONS; E66.9 - OBESITY, UNSPECIFIED Comment/Plan: Desperately needs weight loss. Accu-Cheks and sliding scale insulin. Continue current medications. (4) Hypertension Chronic I10 - ESSENTIAL (PRIMARY) HYPERTENSION Qualifiers: Hypertension type: essential hypertension Qualified Code(s): I10 - Essential (primary) hypertension Comment/Plan: Continue medications and monitor (5) Schizophrenia Chronic F20.9 - SCHIZOPHRENIA, UNSPECIFIED Qualifiers: Schizophrenia type: unspecified Qualified Code(s): F20.9 - Schizophrenia, unspecified Comment/Plan: Much calmer today. Denies hallucinations. Continue medications Case Care Discussed with: Patient, Family, Nursing Staff, Resource Management
[2016-09-03] MEDS: FLUPHENAZINE 5 MG TAB PO SCH (15:59)
[2016-09-03] MEDS: CHLORHEXIDINE (HIBICLENS) 4 OZ BOTTLE TOP SCH (21:43)
[2016-09-03] MEDS: PRAVASTATIN 80 MG TABLET PO SCH (21:44)
--- NOTE | 2016-09-04 03:09 | ED.CODERES ---
Note:: CODE [facility] CALLED. PT'S NURSE FOUND PT UNRESPONSIVE AFTER ENTERING THE ROOM TO STOP A BEEPING IV ALARM. IT IS UNKN HOW LONG PT WAS UNRESPONSIVE HE WAS NOT ON A MONITOR. PT APNEIC AND PULSELESS. CPR BEING DONE UPON MY ARRIVAL TO PT'S ROOM BY NURSING STAFF. PT GIVEN 1 EPI AND 1 INTUBATED PT WITH THE STORZ ON THE 2ND ATTEMPT. TUBE VISUALIZED GOING THROUGH CORDS AND GOOD BS BILAT. GOOD COLOR CHANGE. DR. PAGAN AT BEDSIDE AND WILL CONTINUE WITH CODE.
[2016-09-04 03:12] LABS: MPV 6.9 fL (7.4-10.4)
[2016-09-04 03:19] LABS: BLOOD UREA NITROGEN 23 MG/DL (9-20); CALCIUM 8.9 MG/DL (8.4-10.2); CALCULATED OSMOLALITY 259 MOs/Kg (270-290); CHLORIDE 91 mEq/L (98-107); GLUCOSE 135 mg/dL (70-99); SODIUM LEVEL 131 mEq/L (137-146)
[2016-09-04] MEDS ORDERED: CHAPSTICK LIP BALM TOP PRN (03:20)
[2016-09-04] MEDS ORDERED: LORAZEPAM 2 MG/ML VIAL IV PRN (03:20)
--- NOTE | 2016-09-04 03:31 | GENMEDPROG ---
Note CRITICAL CARE AND CODE BLUE NOTE 09/04/16 0245 S: LATOYA MARINELLI CALLED. PATIENT IS A 60 YO MAN ADMITTED FOR CELLULITIS. NURSE CHECKED ON PATIENT AND HE WAS FOUND NOT BREATHING AND CYANOTIC. NO PULSE. LATOYA MARINELLI CALLED. ROS: Could not be obtained; patient is unresponsive. O: Vital Signs - 24 hr 09/03/16 09/03/16 09/03/16 04:07 07:48 10:44 Temperature 98.1 F 98.3 F Pulse Rate 75 69 Respiratory 20 22 Rate Blood Pressure 110/70 111/53 L Pulse Oxygen 93 93 96 Saturation 09/03/16 09/03/16 09/03/16 14:45 15:58 18:07 Temperature 98.4 F 96.7 F L Pulse Rate 86 75 Respiratory 19 20 Rate Blood Pressure 79/61 L 102/68 127/67 Pulse Oxygen 93 93 Saturation 09/03/16 09/03/16 09/04/16 20:00 20:59 03:33 Temperature 99.7 F Pulse Rate 81 98 Respiratory 18 18 Rate Blood Pressure 102/55 L 102/52 L Pulse Oxygen 94 94 100 Saturation Physical Exam, initial, during and immediately after code blue: GENERAL: Ill-appearing, morbidly obese, in severe acute distress. HEENT: Normocephalic, atraumatic; pupils equal and round. Nares patent, without discharge or bleeding. No oropharyngeal lesions or erythema. Mucous membranes are dry. NECK: is supple, no masses, trachea midline. Large neck circumference. RESPIRATORY: Clear to auscultation bilaterally. No spontaneous chest wall movements. No use of accessory muscles to breathe. No respiratory effort. Respiratory rate is 0 for spontaneous breaths; is being given breaths by bag- valve-mask. Bilateral finding of decreased breath sounds. No wheezing, rales, rhonchi. CARDIOVASCULAR: No pulse and no heart rate initially. No murmurs, rubs, or gallops. Carotids: no carotid pulse initially. No bradycardia or tachycardia. Pulses initially 0 in carotid, radial, femoral. Immediately after code blue: Normal S1 and S2. Distant heart sounds. Mild tachycardia. Murmur 2/6 systolic. No rubs or gallops. Weak pulse in carotid and femoral arteries. GI: soft, obese, nontender, non-distended, hypoactive bowel sounds. No hepatosplenomegaly. INTEGUMENT: Dry. Somewhat manzo color initially. Color improved after code blue. Erythema, open wounds on lower extremities in anterior tibial area; mild amount of exudate. MUSCULOSKELETAL: Initially with manzo color to cyanosis. No clubbing. Edema: 2+ or greater pitting edema bilaterally. NEUROLOGICAL: Initial evaluation: Cranial nerves 2-12: unable to test; patient completely obtunded and unresponsive. Did not respond to sternal rub. Further neurologic exam could not be performed due to the patient's medical condition. After code blue: Cranial nerves 2-12: unable to test; patient completely obtunded and still unresponsive. Did not respond to sternal rub. Did not observe any spontaneous movement. Further neurologic exam could not be performed due to the patient's medical condition. PSYCHIATRIC: Not oriented. Obtunded. Unresponsive to painful stimuli. LYMPHATIC: No cervical lymphadenopathy. No supraclavicular lymphadenopathy. Laboratory Tests (including tests resulted after code blue) 09/01/16 09/01/16 09/01/16 02:43 02:43 02:43 WBC 9.9 RBC 4.19 L Hgb 12.1 L Hct 36.6 L MCV 87 MCH 28.7 MCHC 32.9 L RDW 14.1 Plt Count 316 MPV 6.5 L Neut % (Auto) 78.1 H Lymph % (Auto) 8.8 L [place] % (Auto) 8.5 Eos % (Auto) 3.6 Baso % (Auto) 1.0 Absolute Neuts (auto) 7.72 Absolute Lymphs (auto) 0.79 Seg Neuts % (Manual) Band Neutrophils % Lymphocytes % (Manual) Monocytes % (Manual) Eosinophils % (Manual) Absolute Neutrophils Absolute Lymphocytes Platelet Estimate RBC Morphology PT INR APTT Sodium 126 L Potassium 4.5 Chloride 82 L Carbon Dioxide 36 H Anion Gap 13 BUN 13 Creatinine 0.70 Estimated GFR (MDRD) > 60 Glucose 98 POC Capillary Glucose Hemoglobin A1c 6.9 H Calculated Osmolality 243 L Lactic Acid Calcium 8.9 Corrected Calcium 9.3 Magnesium Total Bilirubin 0.5 AST 46 ALT 36 Alkaline Phosphatase 98 Creatine Kinase Total Protein 6.8 Albumin 3.6 Urine Color Urine Clarity Urine pH Ur Specific [place] Urine Protein Urine Glucose (UA) Urine Ketones Urine Occult Blood Urine Nitrite Urine Bilirubin Urine Urobilinogen Ur Leukocyte Esterase Urine RBC Urine WBC Ur Epithelial Cells Urine Bacteria Hyaline Casts Urine Mucus Ur Random Microalbumin Vancomycin Trough 02/03/1009/01/16 09/01/16 06:35 08:00 08:00 WBC RBC Hgb Hct MCV MCH MCHC RDW Plt Count MPV Neut % (Auto) Lymph % (Auto) [place] % (Auto) Eos % (Auto) Baso % (Auto) Absolute Neuts (auto) Absolute Lymphs (auto) Seg Neuts % (Manual) Band Neutrophils % Lymphocytes % (Manual) Monocytes % (Manual) Eosinophils % (Manual) Absolute Neutrophils Absolute Lymphocytes Platelet Estimate RBC Morphology PT INR APTT Sodium Potassium Chloride Carbon Dioxide Anion Gap BUN Creatinine Estimated GFR (MDRD) Glucose POC Capillary Glucose 112 H Hemoglobin A1c Calculated Osmolality Lactic Acid Calcium Corrected Calcium Magnesium Total Bilirubin AST ALT Alkaline Phosphatase Creatine Kinase Total Protein Albumin Urine Color Yellow Urine Clarity Clear Urine pH 5.0 Ur Specific [place] 1.015 Urine Protein Neg Urine Glucose (UA) Neg Urine Ketones Neg Urine Occult Blood Neg Urine Nitrite Neg Urine Bilirubin Neg Urine Urobilinogen <2.0 Ur Leukocyte Esterase Neg Urine RBC 0-2 Urine WBC 0-2 Ur Epithelial Cells Occ Urine Bacteria Few Hyaline Casts 2-5 H Urine Mucus Occ Ur Random Microalbumin 8.5 Vancomycin Trough 09/01/16 09/01/16 09/01/16 11:05 15:56 20:15 WBC RBC Hgb Hct MCV MCH MCHC RDW Plt Count MPV Neut % (Auto) Lymph % (Auto) [place] % (Auto) Eos % (Auto) Baso % (Auto) Absolute Neuts (auto) Absolute Lymphs (auto) Seg Neuts % (Manual) Band Neutrophils % Lymphocytes % (Manual) Monocytes % (Manual) Eosinophils % (Manual) Absolute Neutrophils Absolute Lymphocytes Platelet Estimate RBC Morphology PT INR APTT Sodium Potassium Chloride Carbon Dioxide Anion Gap BUN Creatinine Estimated GFR (MDRD) Glucose POC Capillary Glucose 112 H 111 H 199 H Hemoglobin A1c Calculated Osmolality Lactic Acid Calcium Corrected Calcium Magnesium Total Bilirubin AST ALT Alkaline Phosphatase Creatine Kinase Total Protein Albumin Urine Color Urine Clarity Urine pH Ur Specific [place] Urine Protein Urine Glucose (UA) Urine Ketones Urine Occult Blood Urine Nitrite Urine Bilirubin Urine Urobilinogen Ur Leukocyte Esterase Urine RBC Urine WBC Ur Epithelial Cells Urine Bacteria Hyaline Casts Urine Mucus Ur Random Microalbumin Vancomycin Trough 09/02/16 09/02/16 09/02/16 05:13 06:24 06:24 WBC 8.3 RBC 4.26 L Hgb 12.3 L Hct 38.2 L MCV 90 MCH 28.9 MCHC 32.2 L RDW 14.4 Plt Count 317 MPV 6.3 L Neut % (Auto) Lymph % (Auto) [place] % (Auto) Eos % (Auto) Baso % (Auto) Absolute Neuts (auto) Absolute Lymphs (auto) Seg Neuts % (Manual) Band Neutrophils % Lymphocytes % (Manual) Monocytes % (Manual) Eosinophils % (Manual) Absolute Neutrophils Absolute Lymphocytes Platelet Estimate RBC Morphology PT INR APTT Sodium 131 L Potassium 5.0 Chloride 91 L Carbon Dioxide 32 Anion Gap 13 BUN 8 L Creatinine 0.60 L Estimated GFR (MDRD) > 60 Glucose 132 H POC Capillary Glucose 134 H Hemoglobin A1c Calculated Osmolality 253 L Lactic Acid Calcium 8.8 Corrected Calcium Magnesium Total Bilirubin AST ALT Alkaline Phosphatase Creatine Kinase Total Protein Albumin Urine Color Urine Clarity Urine pH Ur Specific [place] Urine Protein Urine Glucose (UA) Urine Ketones Urine Occult Blood Urine Nitrite Urine Bilirubin Urine Urobilinogen Ur Leukocyte Esterase Urine RBC Urine WBC Ur Epithelial Cells Urine Bacteria Hyaline Casts Urine Mucus Ur Random Microalbumin Vancomycin Trough 09/02/16 09/02/16 09/02/16 10:59 12:09 15:10 WBC RBC Hgb Hct MCV MCH MCHC RDW Plt Count MPV Neut % (Auto) Lymph % (Auto) [place] % (Auto) Eos % (Auto) Baso % (Auto) Absolute Neuts (auto) Absolute Lymphs (auto) Seg Neuts % (Manual) Band Neutrophils % Lymphocytes % (Manual) Monocytes % (Manual) Eosinophils % (Manual) Absolute Neutrophils Absolute Lymphocytes Platelet Estimate RBC Morphology PT INR APTT Sodium Potassium Chloride Carbon Dioxide Anion Gap BUN Creatinine Estimated GFR (MDRD) Glucose POC Capillary Glucose 130 H 117 H Hemoglobin A1c Calculated Osmolality Lactic Acid Calcium Corrected Calcium Magnesium Total Bilirubin AST ALT Alkaline Phosphatase Creatine Kinase Total Protein Albumin Urine Color Urine Clarity Urine pH Ur Specific [place] Urine Protein Urine Glucose (UA) Urine Ketones Urine Occult Blood Urine Nitrite Urine Bilirubin Urine Urobilinogen Ur Leukocyte Esterase Urine RBC Urine WBC Ur Epithelial Cells Urine Bacteria Hyaline Casts Urine Mucus Ur Random Microalbumin Vancomycin Trough 20.0 09/02/16 09/02/16 09/03/16 17:02 21:22 06:25 WBC RBC Hgb Hct MCV MCH MCHC RDW Plt Count MPV Neut % (Auto) Lymph % (Auto) [place] % (Auto) Eos % (Auto) Baso % (Auto) Absolute Neuts (auto) Absolute Lymphs (auto) Seg Neuts % (Manual) Band Neutrophils % Lymphocytes % (Manual) Monocytes % (Manual) Eosinophils % (Manual) Absolute Neutrophils Absolute Lymphocytes Platelet Estimate RBC Morphology PT INR APTT Sodium 131 L Potassium 5.0 Chloride 89 L Carbon Dioxide 36 H Anion Gap 11 BUN 17 Creatinine 0.90 Estimated GFR (MDRD) > 60 Glucose 124 H POC Capillary Glucose 152 H 109 H Hemoglobin A1c Calculated Osmolality 256 L Lactic Acid Calcium 8.5 Corrected Calcium Magnesium Total Bilirubin AST ALT Alkaline Phosphatase Creatine Kinase Total Protein Albumin Urine Color Urine Clarity Urine pH Ur Specific [place] Urine Protein Urine Glucose (UA) Urine Ketones Urine Occult Blood Urine Nitrite Urine Bilirubin Urine Urobilinogen Ur Leukocyte Esterase Urine RBC Urine WBC Ur Epithelial Cells Urine Bacteria Hyaline Casts Urine Mucus Ur Random Microalbumin Vancomycin Trough 09/03/16 09/03/16 09/03/16 06:25 06:30 11:44 WBC 9.6 RBC 3.88 L Hgb 11.2 L Hct 35.0 L MCV 90 MCH 28.8 MCHC 31.9 L RDW 14.5 Plt Count 279 MPV 6.5 L Neut % (Auto) Lymph % (Auto) [place] % (Auto) Eos % (Auto) Baso % (Auto) Absolute Neuts (auto) Absolute Lymphs (auto) Seg Neuts % (Manual) Band Neutrophils % Lymphocytes % (Manual) Monocytes % (Manual) Eosinophils % (Manual) Absolute Neutrophils Absolute Lymphocytes Platelet Estimate RBC Morphology PT INR APTT Sodium Potassium Chloride Carbon Dioxide Anion Gap BUN Creatinine Estimated GFR (MDRD) Glucose POC Capillary Glucose 123 H 123 H Hemoglobin A1c Calculated Osmolality Lactic Acid Calcium Corrected Calcium Magnesium Total Bilirubin AST ALT Alkaline Phosphatase Creatine Kinase Total Protein Albumin Urine Color Urine Clarity Urine pH Ur Specific [place] Urine Protein Urine Glucose (UA) Urine Ketones Urine Occult Blood Urine Nitrite Urine Bilirubin Urine Urobilinogen Ur Leukocyte Esterase Urine RBC Urine WBC Ur Epithelial Cells Urine Bacteria Hyaline Casts Urine Mucus Ur Random Microalbumin Vancomycin Trough 09/03/16 09/03/16 09/04/16 16:08 21:04 03:09 WBC RBC Hgb Hct MCV MCH MCHC RDW Plt Count MPV Neut % (Auto) Lymph % (Auto) [place] % (Auto) Eos % (Auto) Baso % (Auto) Absolute Neuts (auto) Absolute Lymphs (auto) Seg Neuts % (Manual) Band Neutrophils % Lymphocytes % (Manual) Monocytes % (Manual) Eosinophils % (Manual) Absolute Neutrophils Absolute Lymphocytes Platelet Estimate RBC Morphology PT INR APTT Sodium 131 L Potassium 6.4 H D Chloride 91 L Carbon Dioxide 28 Anion Gap 18 H BUN 23 H Creatinine 1.30 H Estimated GFR (MDRD) 56 L Glucose 135 H POC Capillary Glucose 145 H 132 H Hemoglobin A1c Calculated Osmolality 259 L Lactic Acid Calcium 8.9 Corrected Calcium Magnesium Total Bilirubin AST ALT Alkaline Phosphatase Creatine Kinase Total Protein Albumin Urine Color Urine Clarity Urine pH Ur Specific [place] Urine Protein Urine Glucose (UA) Urine Ketones Urine Occult Blood Urine Nitrite Urine Bilirubin Urine Urobilinogen Ur Leukocyte Esterase Urine RBC Urine WBC Ur Epithelial Cells Urine Bacteria Hyaline Casts Urine Mucus Ur Random Microalbumin Vancomycin Trough 09/04/16 09/04/16 09/04/16 03:09 03:23 03:23 WBC 11.5 H RBC 3.79 L Hgb 10.9 L Hct 35.7 L MCV 94 MCH 28.8 MCHC 30.6 L RDW 14.9 H Plt Count 254 MPV 6.9 L Neut % (Auto) Cancelled Lymph % (Auto) Cancelled [place] % (Auto) Cancelled Eos % (Auto) Cancelled Baso % (Auto) Cancelled Absolute Neuts (auto) Cancelled Absolute Lymphs (auto) Cancelled Seg Neuts % (Manual) 75 Band Neutrophils % 4 Lymphocytes % (Manual) 13 L Monocytes % (Manual) 7 Eosinophils % (Manual) 1 Absolute Neutrophils 9.09 H Absolute Lymphocytes 1.50 Platelet Estimate Norm RBC Morphology 1+ aniso PT INR APTT Sodium 132 L Potassium 6.4 H Chloride 91 L Carbon Dioxide 28 Anion Gap 19 H BUN 23 H Creatinine 1.30 H Estimated GFR (MDRD) 56 L Glucose 134 H POC Capillary Glucose Hemoglobin A1c Calculated Osmolality 261 L Lactic Acid 8.2 H* Calcium 9.1 Corrected Calcium 10.1 Magnesium 2.40 H Total Bilirubin 0.4 AST 114 H ALT 90 H Alkaline Phosphatase 79 Creatine Kinase 348 H Total Protein 5.8 L Albumin 3.0 L Urine Color Urine Clarity Urine pH Ur Specific [place] Urine Protein Urine Glucose (UA) Urine Ketones Urine Occult Blood Urine Nitrite Urine Bilirubin Urine Urobilinogen Ur Leukocyte Esterase Urine RBC Urine WBC Ur Epithelial Cells Urine Bacteria Hyaline Casts Urine Mucus Ur Random Microalbumin Vancomycin Trough 09/04/16 03:23 WBC RBC Hgb Hct MCV MCH MCHC RDW Plt Count MPV Neut % (Auto) Lymph % (Auto) [place] % (Auto) Eos % (Auto) Baso % (Auto) Absolute Neuts (auto) Absolute Lymphs (auto) Seg Neuts % (Manual) Band Neutrophils % Lymphocytes % (Manual) Monocytes % (Manual) Eosinophils % (Manual) Absolute Neutrophils Absolute Lymphocytes Platelet Estimate RBC Morphology PT 12.0 H INR 1.2 APTT 29.8 Sodium Potassium Chloride Carbon Dioxide Anion Gap BUN Creatinine Estimated GFR (MDRD) Glucose POC Capillary Glucose Hemoglobin A1c Calculated Osmolality Lactic Acid Calcium Corrected Calcium Magnesium Total Bilirubin AST ALT Alkaline Phosphatase Creatine Kinase Total Protein Albumin Urine Color Urine Clarity Urine pH Ur Specific [place] Urine Protein Urine Glucose (UA) Urine Ketones Urine Occult Blood Urine Nitrite Urine Bilirubin Urine Urobilinogen Ur Leukocyte Esterase Urine RBC Urine WBC Ur Epithelial Cells Urine Bacteria Hyaline Casts Urine Mucus Ur Random Microalbumin Vancomycin Trough CODE BLUE SUMMARY: UPDATE: Follow up evaluation after code blue, intubated patient: Physical Exam: GENERAL: Ill-appearing, morbidly obese, in severe acute distress. HEENT: Normocephalic, atraumatic; pupils equal and round. Nares patent, without discharge or bleeding. No oropharyngeal lesions or erythema. Mucous membranes are dry. NECK: is supple, no masses, trachea midline. Large neck circumference. RESPIRATORY: Clear to auscultation bilaterally. Intubated and on vent. Chest wall movements are symmetric. No use of accessory muscles to breathe. Bilateral finding of decreased breath sounds. No wheezing, rales, rhonchi. CARDIOVASCULAR: Normal S1 and S2. Distant heart sounds. Mild tachycardia. Murmur 2/6 systolic. No rubs or gallops. Pulse 1+ in carotid and femoral arteries, and DP pulses palpable. GI: soft, obese, nontender, non-distended, hypoactive bowel sounds. No hepatosplenomegaly. : Large amount of urine in bed prior to placement of maxwell. No penile exudate or lesions. Groin with erythema and rash. INTEGUMENT: Dry. No cyanosis at this time. Erythema, open wounds on lower extremities in anterior tibial area; mild amount of exudate. Groin with erythema and rash. MUSCULOSKELETAL: No cyanosis at this time. No clubbing. Edema: 2+ or greater pitting edema bilaterally. NEUROLOGICAL: Intubated patient, but before IV sedation: Cranial nerves 2-12: difficult to test; patient completely obtunded and still unresponsive. Of note, pupils are fixed and dilated (rechecked later and pupils still fixed and dilated). No corneal reflex. Did not respond to sternal rub. Did not observe any spontaneous movement, except : he spontaneously raised his head and neck and opened his mouth, then put his head back down again and was unresponsive. He repeated this episode several minutes later; it appeared more as a reflex than as purposeful movement. Further neurologic exam could not be performed due to the patient's medical condition. PSYCHIATRIC: Not oriented. Obtunded. Unresponsive to painful stimuli. See neurologic section above. LYMPHATIC: No cervical lymphadenopathy. No supraclavicular lymphadenopathy. POST CODE BLUE CRITICAL CARE A/P: - Final/Secondary Discharge Diagnosis (1) [place] coma scale total score 3 Acute R40.2430 - [place] COMA SCALE SCORE 3-8, UNSPECIFIED TIME (2) Obstructive sleep apnea Acute G47.33 - OBSTRUCTIVE SLEEP APNEA (ADULT) (PEDIATRIC) (3) Acute respiratory failure with hypoxia and hypercapnia Acute J96.01 - ACUTE RESPIRATORY FAILURE WITH HYPOXIA; J96.02 - ACUTE RESPIRATORY FAILURE WITH HYPERCAPNIA (4) PEA (Pulseless electrical activity) (5) Cellulitis of both lower extremities Acute L03.115 - CELLULITIS OF RIGHT LOWER LIMB; L03.116 - CELLULITIS OF LEFT LOWER LIMB Present on Admission: Yes Comment: Apparently his cellulitis is improving overall. Large component of stasis dermatitis and probable fungal dermatitis. Excoriated areas are improving. (6) Apnea for greater than 15 seconds Acute R06.81 - APNEA, NOT ELSEWHERE CLASSIFIED (7) Cellulitis of perineum Acute L03.315 - CELLULITIS OF PERINEUM Present on Admission: Yes Comment: Overall improving. Needs weight loss and better hygiene. (8) Seizures Acute R56.9 - UNSPECIFIED CONVULSIONS (9) Diabetes mellitus type 2 in obese Chronic E11.9 - TYPE 2 DIABETES MELLITUS WITHOUT COMPLICATIONS; E66.9 - OBESITY, UNSPECIFIED Present on Admission: Yes Comment: Desperately needs weight loss. Accu-Cheks and sliding scale insulin. Continue current medications. (10) Hypertension Chronic I10 - ESSENTIAL (PRIMARY) HYPERTENSION Present on Admission: Yes essential hypertension I10 - Essential (primary) hypertension Comment: Continue medications and monitor (11) Schizophrenia Chronic F20.9 - SCHIZOPHRENIA, UNSPECIFIED Present on Admission: Yes unspecified F20.9 - Schizophrenia, unspecified Comment: Initially he was in agitated and combative, hearing voices for the TV. Continuing his medications as able, yesterday he was noted as being much calmer and deny hallucinations. (12) Arrhythmia Suspected I49.9 - CARDIAC ARRHYTHMIA, UNSPECIFIED Summary of Critical Care Events and Treatment: Patient is a 60 yo man with morbid obesity, diabetes mellitus type 2, schizophrenia, suspected obstructive sleep apnea, who was admitted with cellulitis of his legs and perineum. 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 His nurse found him apneic and without a pulse; it was not known how long he was down when found, but it was suspected not to be severely long. Code blue was called. Patient was in PEA and asystole during the entire code blue, received medications including epi, and was intubated. After more than 30 minutes of code blue, the patient regained a pulse. He did not have any spontaneous movements, was in a coma with GCS of 3, had pupils that were fixed and dilated, and did not show any neurologic activity. He was transferred to the ICU and placed on mechanical ventilation. He had cultures and labs drawn, had a CXR, and EKG. Electrolytes were corrected as needed. He continued to have a coma with GCS 3, with pupils fixed and dilated. He did have a few reflexive movements of his head/neck. The most likely scenario that lead to the code blue was that he had obstructive sleep apnea, which then led to an event of prolonged apnea, which may have been associated with an arrhythmia. The prolonged apnea likely caused the coma. It is also possible that the patient suffered a massive stroke that caused the coma and apnea. Pulmonary embolism is unlikely, especially given that the patient was on anticoagulation with Xarelto. Myocardial infarction is unlikely given that the patient returned to normal sinus rhythm and did not have significantly elevated troponin levels. In summary, this patient is acutely and critically ill. The patient requires treatment of vital organ failure and measures to prevent further life- threatening deterioration of condition. I have spent 1 hour and 30 min in the critical care of this patient.
[2016-09-04 03:33] LABS: PARTIAL THROMB. TIME 29.8 SEC (22-35); PT-INR 1.2
[2016-09-04] MEDS ORDERED: SODIUM POLYSTYRENE SULFONATE 15 GM BOTTLE PR ONE (03:34)
[2016-09-04 03:35] LABS: BLOOD UREA NITROGEN 23 MG/DL (9-20); CALC CORRECTED 10.1 MG/DL (8.4-10.2); CALCIUM 9.1 MG/DL (8.4-10.2); CALCULATED OSMOLALITY 261 MOs/Kg (270-290); CHLORIDE 91 mEq/L (98-107); CPK TOTAL WITH POSSIBLE MB 348 IU/L (55-170); GLUCOSE 134 mg/dL (70-99); SODIUM LEVEL 132 mEq/L (137-146); TOTAL PROTEIN 5.8 G/DL (6.3-8.2)
[2016-09-04] MEDS ORDERED: CALCIUM CHLORIDE 1000 MG/10 ML (10%) PFS IV ONE (03:35)
[2016-09-04] MEDS ORDERED: REGULAR INSULIN 100 UNITS/ML - 3 ML VIAL IV ONE (03:35)
[2016-09-04] MEDS ORDERED: SODIUM BICARBONATE 50 MEQ/50 ML (8.4%) PFS IV ONE (03:35)
[2016-09-04] MEDS ORDERED: DEXTROSE 25 GM/50 ML PFS IV ONE (03:35)
[2016-09-04] MEDS ORDERED: ALBUTEROL 0.083% 3 ML NEB NEB ONE (03:36)
[2016-09-04] MEDS ORDERED: SODIUM POLYSTYRENE SULFONATE 15 GM BOTTLE PO ONE (03:38)
[2016-09-04 03:39] LABS: SEG NEUTROPHIL 75 % (45-76)
[2016-09-04] MEDS: NS 1,000 ML IV SCH ×3 (03:55→12:00)
[2016-09-04] MEDS ORDERED: NS 1,000 ML IV SCH (04:00)
[2016-09-04] MEDS ORDERED: PANTOPRAZOLE 40 MG VIAL IV SCH (04:00)
[2016-09-04 04:15] LABS: ALLEN'S TEST PASS; BEb 0.5 (+/- 2); TCO2 31.2 MMOL/L (23-27)
[2016-09-04 04:18] LABS: ABG Draw Site Right Radial
--- NOTE | 2016-09-04 04:18 | DIRPT ---
CLINICAL DATA: 60-year-old male status post CPR and intubation. EXAM: PORTABLE CHEST 1 VIEW COMPARISON: None. FINDINGS: An endotracheal tube is noted with tip approximately 5 cm above the mercedes. An enteric tube is partially visualized extending into the left hemiabdomen. A right-sided PICC with tip over central SVC. There are bibasilar atelectatic changes of the lungs. Pneumonia is less likely but not excluded. The lungs are hypovolemic. There is no significant pleural effusion or pneumothorax. Top-normal cardiac silhouette. No acute osseous pathology. IMPRESSION: Endotracheal tube above the mercedes. Bibasilar atelectatic changes. Pneumonia is less likely but not excluded. Clinical correlation is recommended. Electronically Signed By: Angelo Mccauley M.D. On: 09/04/2016 04:15
[2016-09-04 04:19] LABS: MODE AC 18 RATE
[2016-09-04 04:31] VITALS: BMI 57.2
[2016-09-04 04:48] LABS: LEUKOCYTES/URINE NEG (NEGATIVE); NITRITE/URINE NEG (NEGATIVE); RBC/URINE TNTC (0-2); URINE OCCULT BLOOD 3+ (NEG/TRACE)
[2016-09-04] MEDS: FENTANYL 2,500 MCG/250 ML BAG IV SCH ×2 (05:19→14:22)
[2016-09-04] MEDS: CHLORHEXIDINE 0.12% ORAL SOLN 15 ML PO SCH ×2 (05:20→17:24)
[2016-09-04] MEDS: NYSTATIN POWDER 15 GM BOTTLE TOP SCH ×4 (05:20→13:57)
[2016-09-04] MEDS: PIPERACILLIN AND TAZOBACTAM 4.5 GM in D5W 100 ML IV SCH ×2 (06:32→13:49)
[2016-09-04 06:51] LABS: CPKMB RELATIVE INDEX 2.3 (0.0-2.2)
[2016-09-04] MEDS ORDERED: Fluconazole 400 mg in NS 400 MG/200 ML RTU IV SCH (07:00)
--- NOTE | 2016-09-04 07:59 | GENMEDPROG ---
Chief Complaint: Found unresponsive Subjective Note: Unfortunately at about 3 o'clock this morning, the patient was found unresponsive and pulseless in his room on [facility]. Chito gold was called, and after several rounds of coding the patient, a spontaneous pulse was recovered. The patient is currently in the intensive care unit, intubated and unresponsive. He is not on any sedation. Per nursing staff, he is making urine , bowels are moving after receiving Kayexalate, but he has made no spontaneous movements. Notes Reviewed: Yes: Events from last night noted and discussed with Clinical Staff Current Medication List: Reviewed Currently: Denies: Cough, Wheezing, DUFF, SOB, Nausea and Vomiting, Abdominal Pain DVT Prophylaxis: Yes - Physical Examination Vital Signs and I&O: Last Vital Signs Temp 98.8 F 09/04/16 05:00 Pulse 76 09/04/16 07:31 Resp 18 09/04/16 03:33 BP 133/63 09/04/16 05:15 Pulse Ox 100 09/04/16 05:15 Oxygen Pulse Oxygen Saturation 100 O2 Device Vent Oxygen Flow Rate 2 Fraction of Inspired Oxygen ( 40 FIO2) Intake & Output 09/02/16 09/03/16 09/04/16 09/05/16 06:59 06:59 06:59 06:59 Intake Total 3127 3257 3133 Output Total 4350 1050 670 Balance -1223 2207 2463 Patient's weight 160.685 kg 165.607 kg General: Obese, Other (Intubated, unresponsive. No spontaneous movements, even to noxious stimuli.). negative: Cooperative, Well appearing (Chronically ill- appearing) HEENT: Other (Pupils are equal, but fixed dilated.) Neck: Normal Trachea alignment, Normal inspection. negative: JVD Lymphatics: Normal. negative: Adenopathy Respiratory: Normal - CTA. negative: Rales, Rhonchi Cardiovascular: Regular rate and rhythm, No Gallops,Rubs/Murmurs GI: Normal bowel sounds, Soft, Non tender, No hepatospenomegaly, Obese Extremities/Musculoskeletal: Edema Skin: Rash, Erythema (From feet to mid abdomen), Excoriation Neurological: Normal speech, Strength at 5/5 X4 ext Lab/DI/Studies Reviewed: Laboratory Tests 09/04/16 09/04/16 09/04/16 03:09 03:09 03:23 WBC 11.5 H Hgb 10.9 L pH pCO2 pO2 Sodium 131 L Potassium 6.4 H D BUN 23 H Creatinine 1.30 H POC Capillary Glucose Lactic Acid 8.2 H* 09/04/16 09/04/16 04:05 06:38 WBC Hgb pH 7.260 L pCO2 65.0 H pO2 276.0 H Sodium Potassium BUN Creatinine POC Capillary Glucose 196 H Lactic Acid - Assessment (1) PEA (Pulseless electrical activity) Acute I46.9 - CARDIAC ARREST, CAUSE UNSPECIFIED Comment/Plan: Patient was found overnight to be unresponsive and without a pulse. Chito gold was called and CPR was initiated. It is unclear for how long he was down. He is currently in the ICU, intubated and unresponsive not on any sedation. Currently blood pressure and other vital signs are stable without specific support other than the ventilator. Etiology of his event is currently unclear, he does have a history of sleep apnea and severe obesity, so he may have had a respiratory event. Myocardial infarction seems somewhat unlikely, because his troponin is only minimally elevated at this time. PE is another possibility, but again seems unlikely given the fact that he is neither tachycardic nor hypoxic at this time. If his renal function remains stable, and able to tolerate, will obtain CT angiogram to rule out pulmonary embolism, and also will obtain a noncontrast CT of the head if able. (2) Cellulitis of both lower extremities Acute L03.115 - CELLULITIS OF RIGHT LOWER LIMB; L03.116 - CELLULITIS OF LEFT LOWER LIMB Comment/Plan: Apparently his cellulitis is improving overall. Large component of stasis dermatitis and probable fungal dermatitis. Excoriated areas are improving. Likely would benefit from Unna boots long- term. Desperately needs weight loss (3) Cellulitis of perineum Acute L03.315 - CELLULITIS OF PERINEUM Comment/Plan: Overall improving. Needs weight loss and better hygiene. Increase activity as able. (4) Diabetes mellitus type 2 in obese Chronic E11.9 - TYPE 2 DIABETES MELLITUS WITHOUT COMPLICATIONS; E66.9 - OBESITY, UNSPECIFIED Comment/Plan: Desperately needs weight loss. Accu-Cheks and sliding scale insulin. Continue current medications. (5) Hypertension Chronic I10 - ESSENTIAL (PRIMARY) HYPERTENSION Qualifiers: Hypertension type: essential hypertension Qualified Code(s): I10 - Essential (primary) hypertension Comment/Plan: Continue medications and monitor (6) Schizophrenia Chronic F20.9 - SCHIZOPHRENIA, UNSPECIFIED Qualifiers: Schizophrenia type: unspecified Qualified Code(s): F20.9 - Schizophrenia, unspecified Comment/Plan: Initially he was in agitated and combative, hearing voices for the TV. Continuing his medications as able, yesterday he was noted as being much calmer and deny hallucinations. (7) Hip pain Acute M25.559 - PAIN IN UNSPECIFIED HIP - Plan In summary this patient is acutely and critically ill. The patient requires treatment of vital organ failure and measures to prevent further life- threatening deterioration of the above conditions. I personally reviewed and ordered lab testing, as well as imaging. I reviewed old medical records from previous hospitalizations as available, and spent the time mentioned below in critical care of this patient including counseling and coordination of care. Total Time: 45
[2016-09-04 08:45] LABS: BLOOD UREA NITROGEN 29 MG/DL (9-20); CALCIUM 8.6 MG/DL (8.4-10.2); CALCULATED OSMOLALITY 262 MOs/Kg (270-290); CHLORIDE 92 mEq/L (98-107); GLUCOSE 228 mg/dL (70-99); SODIUM LEVEL 129 mEq/L (137-146)
[2016-09-04] MEDS: REGULAR INSULIN 100 UNITS/ML - 3 ML VIAL SQ SCH ×3 (08:53→17:02)
[2016-09-04] MEDS: RIVAROXABAN 10 MG TAB PO SCH (08:54)
[2016-09-04] MEDS: TRIHEXYPHENIDYL 2 MG TAB PO SCH (08:55)
[2016-09-04] MEDS: QUINAPRIL HCL 20 MG TAB PO SCH (08:55)
[2016-09-04] MEDS: TAMSULOSIN HCL 0.4 MG CAP PO SCH (08:56)
[2016-09-04] MEDS: HYDROCHLOROTHIAZIDE 12.5 MG CAP PO SCH (08:56)
[2016-09-04] MEDS: FUROSEMIDE 20 MG TAB PO SCH (08:57)
[2016-09-04] MEDS: NICOTINE 21 MG PATCH TOP SCH (08:57)
[2016-09-04] MEDS: INSULIN DETEMIR 100 UNITS/ML PEN SQ SCH ×2 (08:59→12:00)
[2016-09-04 09:35] LABS: CPKMB 6.8 ng/mL (0-4.5)
[2016-09-04 10:05] LABS: CPKMB 13.3 ng/mL (0-4.5); CPKMB RELATIVE INDEX 2.5 (0.0-2.2)
--- NOTE | 2016-09-04 10:55 | CAPUEKG ---
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
[2016-09-04 11:11] LABS: ALLEN'S TEST PASS; BEb 3.2 (+/- 2); TCO2 31.5 MMOL/L (23-27)
[2016-09-04 11:12] LABS: ABG Draw Site Left Radial; MODE AC 18 RATE
[2016-09-04] MEDS: FLUPHENAZINE 5 MG TAB PO SCH (15:49)
[2016-09-04] MEDS ORDERED: Medication Special Instructions SCH (16:00)
[2016-09-04] MEDS ORDERED: NS 500 ML IV ONE (17:19)
[2016-09-04] MEDS ORDERED: MAGIC MOUTHWASH 180 ML ORAL SUSP PO PRN (22:53)
[2016-09-04] MEDS ORDERED: LOPERAMIDE 2 MG CAP PO PRN (22:53)
[2016-09-04] MEDS ORDERED: HALOPERIDOL 5 MG/ML VIAL IV PRN (22:53)
[2016-09-04] MEDS ORDERED: SCOPOLAMINE TRANSDERMAL PATCH TOP PRN (22:53)
[2016-09-04] MEDS ORDERED: ATROPINE 1% SL PRN (22:53)
[2016-09-04] MEDS: CHLORHEXIDINE (HIBICLENS) 4 OZ BOTTLE TOP SCH (22:59)
[2016-09-04] MEDS: MORPHINE 2 MG/ML INJECTION IV PRN ×2 (23:07→23:57)
[2016-09-05] MEDS ORDERED: SODIUM BICARBONATE 50 MEQ/50 ML (8.4%) PFS IV ONE
[2016-09-05] MEDS ORDERED: EPINEPHrine 1 MG/10 ML (1:10,000) SYR IV ONE
[2016-09-05] MEDS ORDERED: Magnesium Sulfate 4 gram/50 ml 4 GM/50 ML IVB IV ONE
[2016-09-05] MEDS: REGULAR INSULIN 100 UNITS/ML - 3 ML VIAL SQ SCH (00:25)
[2016-09-05] MEDS: TRIHEXYPHENIDYL 2 MG TAB PO SCH (00:25)
[2016-09-05] MEDS: NYSTATIN POWDER 15 GM BOTTLE TOP SCH ×2 (00:26)
[2016-09-05] MEDS: PRAVASTATIN 80 MG TABLET PO SCH (00:26)
[2016-09-05] MEDS: PIPERACILLIN AND TAZOBACTAM 4.5 GM in D5W 100 ML IV SCH (00:27)
[2016-09-05 00:48] VITALS: TEMP 98.7
[2016-09-05] MEDS: MORPHINE 2 MG/ML INJECTION IV PRN (01:49)
[2016-09-05 02:20] VITALS: BP 102/57; PULSE 0
--- NOTE | 2016-09-05 07:58 | PCM.DCS92 ---
- Final/Secondary Discharge Diagnosis (1) Les coma scale total score 3 Acute R40.2430 - LES COMA SCALE SCORE 3-8, UNSPECIFIED TIME (2) Obstructive sleep apnea Acute G47.33 - OBSTRUCTIVE SLEEP APNEA (ADULT) (PEDIATRIC) (3) Acute respiratory failure with hypoxia and hypercapnia Acute J96.01 - ACUTE RESPIRATORY FAILURE WITH HYPOXIA; J96.02 - ACUTE RESPIRATORY FAILURE WITH HYPERCAPNIA (4) PEA (Pulseless electrical activity) Acute I46.9 - CARDIAC ARREST, CAUSE UNSPECIFIED Comment: Patient was found overnight to be unresponsive and without a pulse. Code blue was called and CPR was initiated. It is unclear for how long he was down. He is currently in the ICU, intubated and unresponsive not on any sedation. Currently blood pressure and other vital signs are stable without specific support other than the ventilator. Etiology of his event is currently unclear, he does have a history of sleep apnea and severe obesity, so he may have had a respiratory event. Myocardial infarction seems somewhat unlikely, because his troponin is only minimally elevated at this time. PE is another possibility, but again seems unlikely given the fact that he is neither tachycardic nor hypoxic at this time. If his renal function remains stable, and able to tolerate, will obtain CT angiogram to rule out pulmonary embolism, and also will obtain a noncontrast CT of the head if able. (5) Cellulitis of both lower extremities Acute L03.115 - CELLULITIS OF RIGHT LOWER LIMB; L03.116 - CELLULITIS OF LEFT LOWER LIMB Present on Admission: Yes Comment: Apparently his cellulitis is improving overall. Large component of stasis dermatitis and probable fungal dermatitis. Excoriated areas are improving. Likely would benefit from Unna boots long-term. Desperately needs weight loss (6) Apnea for greater than 15 seconds Acute R06.81 - APNEA, NOT ELSEWHERE CLASSIFIED (7) Cellulitis of perineum Acute L03.315 - CELLULITIS OF PERINEUM Present on Admission: Yes Comment: Overall improving. Needs weight loss and better hygiene. Increase activity as able. (8) Seizures Acute R56.9 - UNSPECIFIED CONVULSIONS (9) Diabetes mellitus type 2 in obese Chronic E11.9 - TYPE 2 DIABETES MELLITUS WITHOUT COMPLICATIONS; E66.9 - OBESITY, UNSPECIFIED Present on Admission: Yes Comment: Desperately needs weight loss. Accu-Cheks and sliding scale insulin. Continue current medications. (10) Hypertension Chronic I10 - ESSENTIAL (PRIMARY) HYPERTENSION Present on Admission: Yes essential hypertension I10 - Essential (primary) hypertension Comment: Continue medications and monitor (11) Schizophrenia Chronic F20.9 - SCHIZOPHRENIA, UNSPECIFIED Present on Admission: Yes unspecified F20.9 - Schizophrenia, unspecified Comment: Initially he was in agitated and combative, hearing voices for the TV. Continuing his medications as able, yesterday he was noted as being much calmer and deny hallucinations. (12) Arrhythmia Suspected I49.9 - CARDIAC ARRHYTHMIA, UNSPECIFIED Discharge Disposition: Home Medications / New Prescriptions: No Action Trihexyphenidyl [Artane] 2 mg PO BID Lovastatin [Mevacor] 80 mg PO HS Gabapentin [Neurontin] 800 mg PO TID Quinapril/Hydrochlorothiazide [Accuretic 20-12.5 mg Tablet] 1 tab PO DAILY MetFORMIN (Immediate Release) [Glucophage Immediate Release] 1,000 mg PO 0700 ,1700 Fluphenazine [Prolixin] 5 mg PO .AFTERNOON Citalopram (anti-depressant) [Celexa] 20 mg PO DAILY Aspirin [Aspirin EC] 81 mg PO DAILY Celecoxib [Celebrex] 200 mg PO DAILY Fluphenazine Decanoate 30 mg IM .[id number] Furosemide [Lasix] 20 mg PO QAM Insulin Detemir [Levemir Flextouch] 20 unit SQ DAILY Tamsulosin HCl [Flomax] 0.4 mg PO DAILY Trazodone HCl [Desyrel] 50 mg PO QHS PRN PRN Reason: Sleep Or Insomnia - DC Summary Notes Hospital Course Note:: Discharge summary on patient named CADEN WILSON admitted to [facility] on 09/01/16 by Gene Bush MD. Date of discharge is [09/05/2016]. Patient is a 60 yo man with morbid obesity, diabetes mellitus type 2, schizophrenia, suspected obstructive sleep apnea, who was admitted with cellulitis of his legs and perineum. He was receiving treatment for his cellulitis, but then had an ultimately fatal event in the soaker meat of . His nurse found him apneic and without a pulse; it was not known how long he was down when found, but it was suspected not to be severely long. Chito gold was called. Patient was in PEA and asystole during the entire code blue, received medications including epi, and was intubated. After more than 30 minutes of code blue, the patient regained a pulse. He did not have any spontaneous movements, was in a coma with GCS of 3, had pupils that were fixed and dilated, and did not show any neurologic activity. He was transferred to the ICU and placed on mechanical ventilation. He had cultures and labs drawn, had a CXR, and EKG. Electrolytes were corrected as needed. He continued to have a coma with GCS 3, with pupils fixed and dilated. He did have a few reflexive movements of his head/neck. Attempt was made to obtain a CT of the head and CTA chest, but patient developed seizures while trying to place him on the CT scan and ultimately was too unstable to have the scans. The most likely scenario that resulted in his was that he had obstructive sleep apnea, which then led to an event of prolonged apnea, which may have been associated with an arrhythmia. The prolonged apnea likely caused the coma. It is also possible that the patient suffered a massive stroke that caused the coma and apnea. Pulmonary embolism is unlikely, especially given that the patient was on anticoagulation with Xarelto. Myocardial infarction is unlikely given that the patient returned to normal sinus rhythm and did not have significantly elevated troponin levels. Several long discussions were conducted with the patient's significant other and eventually also his extended family and police detention attendant. Several family members noted that the patient had said in the past that he would never want to be on a breathing machine or be kept alive if he were not able to function as himself. Family decided to make patient DNR, then decided on comfort care. Medications for treatment were stopped, and medications for comfort were added. Family then requested that patient's ET tube be removed and that the mechanical ventilation be stopped. Family's requests were honored. Patient in the soaker meat hours of 09/05/2016 surrounded by family. Total Time: 50 min Code: 291 - Physical Exam Vital Signs: Last Vital Signs Temp 98.7 F 09/04/16 23:00 Pulse 0 L 09/05/16 02:05 Resp 18 09/05/16 02:00 BP 102/57 L 09/05/16 02:00 Pulse Ox 100 09/05/16 02:00 Oxygen Pulse Oxygen Saturation 100 O2 Device Vent Oxygen Flow Rate 2 Fraction of Inspired Oxygen ( 40 FIO2)
== END 2016-09-05 04:00 | disposition expired | DRG 602 ==
LOC: ED 01:42 → MPS3 05:03 → ICU 09-04 03:19 → EDINP 09-05 05:15 → ICU 09-05 05:21 → UNDODISIN 09-05 05:49
PROVIDERS: ATTEND Internal Medicine
PROC: 02HV33Z Insertion of Infusion Device into Superior Vena Cava, Percutaneous Approach (ICD-10-PCS; principal; 2016-09-02)
PROC: 5A1935Z Respiratory Ventilation, Less than 24 Consecutive Hours (ICD-10-PCS; 2016-09-04)
PROC: 4A033R1 Measurement of Arterial Saturation, Peripheral, Percutaneous Approach (ICD-10-PCS; 2016-09-04)
PROC: 3E043XZ Introduction of Vasopressor into Central Vein, Percutaneous Approach (ICD-10-PCS; 2016-09-04)
PROC: 0BH17EZ Insertion of Endotracheal Airway into Trachea, Via Natural or Artificial Opening (ICD-10-PCS; 2016-09-04)
PROC: 5A12012 Performance of Cardiac Output, Single, Manual (ICD-10-PCS; 2016-09-04)
DX: L03.115 Cellulitis of right lower limb (principal); J96.01 Acute respiratory failure with hypoxia; I63.9 Cerebral infarction, unspecified; J96.02 Acute respiratory failure with hypercapnia; R56.9 Unspecified convulsions; E11.9 Type 2 diabetes mellitus without complications; I10 Essential (primary) hypertension; B36.9 Superficial mycosis, unspecified; L03.315 Cellulitis of perineum; Z68.43 Body mass index [BMI] 50.0-59.9, adult; L03.116 Cellulitis of left lower limb; E78.00 Pure hypercholesterolemia, unspecified; F32.9 Major depressive disorder, single episode, unspecified; E66.9 Obesity, unspecified; G47.33 Obstructive sleep apnea (adult) (pediatric); F20.9 Schizophrenia, unspecified; I87.2 Venous insufficiency (chronic) (peripheral); Z79.4 Long term (current) use of insulin; Z79.84 Long term (current) use of oral hypoglycemic drugs; Z79.82 Long term (current) use of aspirin; I46.9 Cardiac arrest, cause unspecified; I49.9 Cardiac arrhythmia, unspecified; Z66 Do not resuscitate; Z51.5 Encounter for palliative care; R40.2430 Glasgow coma scale score 3-8, unspecified time
CPT/HCPCS: 31720; 36415; 36569; 36600; 71010; 72192; 76937; 77001; 80048; 80053; 80202; 81001; 82043; 82272; 82550; 82553; 82803; 82962; 83036; 83605; 83735; 83874; 84484; 85007; 85025; 85027; 85379; 85610; 85730; 87040; 87070; 87086; 87205; 87493; 87641; 92950; 93005; 94002; 94770; 96365; 96366; 96372; 97162; 99283; J0171; J1450; J1650; J1953; J2001; J2060; J2270; J2543; J2680; J3370; J3475; J3490; J7060; S0164